=== PATIENT | male | born 1990 | race Two or more races ===

== ENCOUNTER 2022-08-11 20:08 | Emergency (ER) | payer BC, OTHER ==
[~2022-08-11] VITALS: Ht 190.5 cm; Wt 136.4 kg
[2022-08-11 20:46] VITALS: BP 151/71
[2022-08-11] MEDS ORDERED: IBUP800T27 PO (22:24)
[2022-08-11] MEDS: KETOROLAC TROMETH 60MG/2ML VIAL IM ONE (22:30)
[2022-08-12] MEDS: KETOROLAC TROMETH 60MG/2ML VIAL IM ONE (01:45)
== END 2022-08-12 02:02 | disposition home or self-care (01) ==
LOC: ER 20:11
DX: S83.91XA Sprain of unspecified site of right knee, initial encounter (principal); X50.9XXA Other and unspecified overexertion or strenuous movements or postures, initial encounter; Y93.67 Activity, basketball; Y92.89 Other specified places as the place of occurrence of the external cause; Y99.8 Other external cause status
CPT/HCPCS: 29505; 73562; 96372; 99283; J1885